=== PATIENT | female | born 1955 | race Caucasian/White ===

== ENCOUNTER 2020-12-26 17:37 | Emergency (ER) | payer OTHER ==
[~2020-12-26] VITALS: Ht 170.2 cm; Wt 82.7 kg
--- NOTE | 2020-12-26 17:40 | NUR ---
pt BIB [facility] from home for ALOC, unk onset per report, pt family on scene were very poor historians and patient was not talking IV started [employer] x2 and pt given fluids. per report, [facility] having difficulty getting B/P reading upon admit, pt making some noise. HAYES. no facial droop noted.
--- NOTE | 2020-12-26 17:47 | NUR ---
lab at bedside to draw
--- NOTE | 2020-12-26 17:50 | NUR ---
Dr. Steen has been to bedside for eval EKG at bedside pt reeating "hurt" but not answering questions
--- NOTE | 2020-12-26 17:59 | NUR ---
pt daughter at bedside. per daughter, she was at work and recieved a call from family at home with pt who stated that she "was not breathing right" and that they gave her her inhaler and called [phone]
[2020-12-26 18:00] LABS: BASOPHILS % (AUTO) 1 % (0-1); EOSINOPHILS % (AUTO) 0 % (1-7); LYMPHOCYTES % (AUTO) 39 % (22-44); MEAN CORPUSCULAR HEMOGLOBIN 35.4 pg (27.0-34.8); MEAN CORPUSCULAR HGB CONC 34.2 g/dL (32.4-35.8); MEAN PLATELET VOLUME 7.4 fL (7.4-10.4); MONOCYTES % (AUTO) 7 % (2-9); NEUTROPHILS % (AUTO) 53 % (42-75); PLATELET COUNT 368 x10^3/uL (130-400); RED CELL DISTRIBUTION WIDTH 18.8 % (9.6-15.2)
[2020-12-26] MEDS ORDERED: SODIUM CHLORIDE 0.9% 1,000ML IVBOLUS ONE (18:00)
--- NOTE | 2020-12-26 18:00 | NUR ---
pt moved to room 39. report to Carlos ZAMAN
[2020-12-26 18:12] LABS: ALBUMIN 3.1 g/dL (3.4-5.0); ANION GAP 8 mmol/L (5-15); CALCIUM 8.7 mg/dL (8.5-10.1); CHLORIDE 108 mmol/L (98-107); SALICYLATE LEVEL 3.7 mg/dL (2.8-20.0)
[2020-12-26 18:15] LABS: ALANINE AMINOTRANSFERASE 9 U/L (12-78); ALKALINE PHOSPHATASE 69 U/L (45-117); BILIRUBIN,TOTAL 0.4 mg/dL (0.2-1.0); CREATININE 0.63 mg/dL (0.55-1.02); TOTAL PROTEIN 7.3 g/dL (6.4-8.2); TROPONIN I < 0.015 ng/mL (0.000-0.045)
--- NOTE | 2020-12-26 18:15 | NUR ---
LATE ENTRY FOR 1814 D/T PATIENT CARE: REPORT TAKEN FROM JUNIE HAND, CARE ASSUMED BY THIS RN. PT IS SPEAKING IN COHERENT SENTENCES, WHICH IS AN IMPROVEMENT FROM MENTAL STATUS ON ARRIVAL PER JUNIE HAND. PT IS DISORIENTED. PT MOVING ALL EXTREMITIES, FOLLOWS COMMANDS. AFTER RECEIVING REPORT, PT BECAME NON-RESPONSIVE FOR APPROX 15 SECONDS, NOT RESPONSIVE TO STERNAL RUB. NO CHANGE IN VITAL SIGNS OR CARDIAC RHYTHM. EYES CROSS WHEN LIDS OPEN. AFTER APPROX 15 SECONDS, PT SPONTANEOUSLY BEGINS TO SPEAK AND MOVE EXTREMITIES. EDKS TARIQ NOTIFIED PT HAS 3/5 STRENGTH TO ALL EXTREMITIES WITH EQUAL RN WOUND BILATERALLY. NON-COMPLIANT WITH FULL NEURO ASSESSMENT, TRACI DRIFT AND DETAILED NEURO ASSESSMENT COMPONENTS. PT'S DAUGHTER IS NOW AT BEDSIDE AND STATES THAT SHE BELIEVES PT WAS LAST NORMAL AROUND 1600 ACCORDING TO PT'S AUNT (WHOM PT LIVES WITH), PT'S AUNT WENT TO STORE AND RETURNED TO FIND PT ALTERED. MD POTTER NOTIFIED. STATES CODE NEURO NOT INDICATED LAST KNOWN NORMAL IS NOT EXACT, AND PT HAS NO FOCAL NEURO DEFICITS. ALL MONITORS IN PLACE. PT'S DAUGHTER AT BEDSIDE.
[2020-12-26 18:21] LABS: FREE T4 (FREE THYROXINE) 0.86 ng/dL (0.76-1.46)
[2020-12-26] MEDS ORDERED: THIAMINE 100 MG/ML, 2ML IM ONE (18:30)
--- NOTE | 2020-12-26 18:39 | NUR ---
pt to ct
--- NOTE | 2020-12-26 18:50 | NUR ---
REPORT GIVEN TO JUNIE LEBLANC PT IN CT AT THIS TIME.
[2020-12-26 18:54] LABS: MICROSCOPIC NOT IND
[2020-12-26 19:05] LABS: AMPHETAMINE SCREEN, URINE Positive (Negative); BARBITURATE SCREEN, URINE Negative (Negative); BENZODIAZEPINE SCREEN, URINE Negative (Negative); CANNABINOID SCREEN, URINE Negative (Negative); COCAINE SCREEN, URINE Negative (Negative); METHADONE SCREEN, URINE Negative (Negative); OPIATE SCREEN, URINE Negative (Negative)
[2020-12-26 19:15] VITALS: BP 111/78
--- NOTE | 2020-12-26 19:16 | NUR ---
PT BACK FROM CT DAUGHTER AT BEDSIDE STS PT IS SHAKING, UPON ENTERING ROOM PT A/O FOR RN AND AWARE OF LOCATION AND IS ASKING TO GO HOME. PT REMAINS CONNECTED TO MONITORING VSS NADN
[2020-12-26] MEDS ORDERED: THIAMINE 100 MG/ML, 2ML ONE (19:29)
--- NOTE | 2020-12-26 19:31 | NUR ---
DR POTTER AT BEDSIDE FOR EVAL AND POC
== END 2020-12-26 20:22 ==
LOC: ED 19:04
DX: R41.82 Altered mental status, unspecified (principal); R94.31 Abnormal electrocardiogram [ECG] [EKG]; F10.120 Alcohol abuse with intoxication, uncomplicated; G31.2 Degeneration of nervous system due to alcohol; Y90.0 Blood alcohol level of less than 20 mg/100 ml
CPT/HCPCS: 36415; 70450; 71045; 80053; 80299; 80307; 80320; 80329; 81003; 84439; 84443; 84484; 85025; 93005; 96360; 96372; 99285; J3411; J7030; G0480

== ENCOUNTER 2021-01-17 19:43 | Inpatient (IN) | payer OTHER ==
[~2021-01-17] VITALS: Ht 162.6 cm; Wt 74.9 kg
[~2021-01-17 19:43] MED LIST: ALBU6.7H8 INH; ATOR10TA PO; CHLO25TA PO; DICL100G25 TP; GABA300C PO; LISI-167 PO; TIOT4MIS5 INH
--- NOTE | 2021-01-17 19:55 | NUR ---
THIS IS A 65F BROUGHT IN BY FRIEND, PT NOT INTERACTING WITH STAFF OR ANSWERING QUESTIONS HOWEVER PT LEFT FACILITY YESTERDAY EVENING AMA. PT CONNECTED TO ALL MONITORING, PIV STARTED.
[2021-01-17] MEDS ORDERED: SODIUM CHLORIDE FLUSH 10ML SYR IVF ONE (21:00)
[2021-01-17] MEDS ORDERED: SODIUM CHLORIDE 0.9% 1,000ML IVBOLUS ONE (21:00)
[2021-01-17 21:04] LABS: BASOPHILS % (AUTO) 1 % (0-1); EOSINOPHILS % (AUTO) 0 % (1-7); LYMPHOCYTES % (AUTO) 34 % (22-44); MEAN CORPUSCULAR HEMOGLOBIN 35.1 pg (27.0-34.8); MEAN CORPUSCULAR HGB CONC 34.3 g/dL (32.4-35.8); MONOCYTES % (AUTO) 7 % (2-9); NEUTROPHILS % (AUTO) 58 % (42-75); PLATELET COUNT 273 x10^3/uL (130-400); RED BLOOD COUNT 4.11 x10^6/uL (3.82-5.3); RED CELL DISTRIBUTION WIDTH 16.9 % (9.6-15.2)
--- NOTE | 2021-01-17 21:05 | NUR ---
PT REQUESTING BATHROOM, PT A/O X4 AMBULATORY AND STS SHE DOES NOT RECALL LEAVING THE HOSPITAL. URINE SENT TO LAB
[2021-01-17 21:15] LABS: ALANINE AMINOTRANSFERASE 17 U/L (12-78); ALBUMIN 3.7 g/dL (3.4-5.0); ANION GAP 7 mmol/L (5-15); CALCIUM 9.4 mg/dL (8.5-10.1); CHLORIDE 104 mmol/L (98-107); CREATININE 0.78 mg/dL (0.55-1.02)
[2021-01-17 21:16] LABS: MICROSCOPIC NOT IND
[2021-01-17 21:20] LABS: ALKALINE PHOSPHATASE 63 U/L (45-117); BILIRUBIN,TOTAL 0.5 mg/dL (0.2-1.0); TOTAL PROTEIN 8.6 g/dL (6.4-8.2); TROPONIN I < 0.015 ng/mL (0.000-0.045)
[2021-01-17 21:27] LABS: AMPHETAMINE SCREEN, URINE Positive (Negative); BARBITURATE SCREEN, URINE Negative (Negative); BENZODIAZEPINE SCREEN, URINE Negative (Negative); CANNABINOID SCREEN, URINE Negative (Negative); COCAINE SCREEN, URINE Negative (Negative); METHADONE SCREEN, URINE Negative (Negative); OPIATE SCREEN, URINE Negative (Negative)
[2021-01-17] MEDS ORDERED: ONDANSETRON 2MG/ML, 2ML IVPush ONE (22:00)
[2021-01-17] MEDS ORDERED: MORPHINE SULFATE 4 MG/ML, 1ML IVPush PRN (22:00)
--- NOTE | 2021-01-17 22:00 | NUR ---
PT RESTING ON KEN DUANEKarissa DAUGHTER AT BEDSIDE FOR SUPPORT, PT INTERACTING WITH DAUGHTER NORMALLY,
[2021-01-17] MEDS ORDERED: ONDANSETRON 2MG/ML, 2ML ONE (22:03)
[2021-01-17] MEDS ORDERED: MORPHINE SULFATE 4 MG/ML, 1ML ONE (22:04)
--- NOTE | 2021-01-17 22:08 | NUR ---
PT MEDICATED PER MAR FOR PAIN AND NAUSEA AT THIS TIME 5RIGHTS VERIFIED.
--- NOTE | 2021-01-17 22:27 | NUR ---
TASK RN: PT NOTED TO HAVE O2 SAT AT 71% ON ROOM AIR. PT PLACED ON 2L O2 VIA NASAL CANNULA. O2 SAT IMPROVED TO 96%
--- NOTE | 2021-01-17 22:46 | NUR ---
REPORT TO MAGI ZAMAN PT READY FOR TRANSFER TO FLOOR
--- NOTE | 2021-01-17 23:06 | NUR ---
Charge nurse: Pt family asking to go up with patient. Checked with Lee Ann primary nurse upstairs who stated no visitors now. Gave family number for unit.
[2021-01-17 23:15] VITALS: BP 100/72
[2021-01-17] MEDS ORDERED: hydrALAzine 20 MG/ML, 1ML IVPush PRN (23:30)
[2021-01-17] MEDS ORDERED: ONDANSETRON 2MG/ML, 2ML IVPush PRN (23:30)
[2021-01-17] MEDS ORDERED: ALBUTEROL SULFATE 2.5 MG/3 ML NPPB PRN (23:30)
[2021-01-17] MEDS ORDERED: ACETAMINOPHEN 325 MG TABLET PO PRN (23:30)
[2021-01-17] MEDS ORDERED: BISACODYL 10 MG SUPP PR PRN (23:30)
[2021-01-17] MEDS ORDERED: SODIUM CHLORIDE 0.9% 1,000 ML IV SCH (23:30)
[2021-01-18 01:06] VITALS: BP 107/70
[2021-01-18 04:43] LABS: BASOPHILS % (AUTO) 1 % (0-1); EOSINOPHILS % (AUTO) 0 % (1-7); LYMPHOCYTES % (AUTO) 34 % (22-44); MEAN CORPUSCULAR HEMOGLOBIN 35.5 pg (27.0-34.8); MEAN CORPUSCULAR HGB CONC 34.5 g/dL (32.4-35.8); MEAN PLATELET VOLUME 8.2 fL (7.4-10.4); MONOCYTES % (AUTO) 8 % (2-9); NEUTROPHILS % (AUTO) 57 % (42-75); PLATELET COUNT 261 x10^3/uL (130-400); RED BLOOD COUNT 3.84 x10^6/uL (3.82-5.3); RED CELL DISTRIBUTION WIDTH 16.5 % (9.6-15.2)
[2021-01-18 04:50] LABS: ANION GAP 5 mmol/L (5-15); CALCIUM 8.9 mg/dL (8.5-10.1); CHLORIDE 107 mmol/L (98-107); CREATININE 0.65 mg/dL (0.55-1.02)
[2021-01-18] MEDS: ASPIRIN 325 MG TABLET EC PO SCH (06:00)
[2021-01-18] MEDS: IPRATROPIUM 0.5 MG/2.5 ML INHA NPPB SCH ×5 (06:00→23:37)
[2021-01-18 07:19] VITALS: BP 86/54
[2021-01-18 07:26] VITALS: BP 91/64
[2021-01-18] MEDS ORDERED: CHLORTHALIDONE 25 MG TABLET PO SCH (09:00)
[2021-01-18] MEDS ORDERED: LISINOPRIL 20 MG TABLET PO SCH (09:00)
[2021-01-18] MEDS: D5%-0.45NACL+KCL 20MEQ 1,000 ML IV SCH (09:31)
[2021-01-18 13:23] VITALS: BP 106/73
[2021-01-18 20:24] VITALS: BP 93/61
[2021-01-18] MEDS ORDERED: ATORVASTATIN 20 MG TABLET PO SCH (21:00)
[2021-01-19 02:44] VITALS: BP 101/73
[2021-01-19 04:41] LABS: BASOPHILS % (AUTO) 1 % (0-1); EOSINOPHILS % (AUTO) 0 % (1-7); LYMPHOCYTES % (AUTO) 29 % (22-44); MEAN CORPUSCULAR HEMOGLOBIN 35.2 pg (27.0-34.8); MEAN CORPUSCULAR HGB CONC 34.5 g/dL (32.4-35.8); MEAN PLATELET VOLUME 8.2 fL (7.4-10.4); MONOCYTES % (AUTO) 7 % (2-9); NEUTROPHILS % (AUTO) 63 % (42-75); PLATELET COUNT 257 x10^3/uL (130-400); RED BLOOD COUNT 3.72 x10^6/uL (3.82-5.3)
[2021-01-19 04:55] LABS: ALANINE AMINOTRANSFERASE 15 U/L (12-78); ANION GAP 2 mmol/L (5-15); CALCIUM 8.6 mg/dL (8.5-10.1); CHLORIDE 107 mmol/L (98-107); CHOLESTEROL, TOTAL 148 mg/dL (140-239); CREATININE 0.68 mg/dL (0.55-1.02)
[2021-01-19 04:57] LABS: ALKALINE PHOSPHATASE 52 U/L (45-117); BILIRUBIN,TOTAL 0.4 mg/dL (0.2-1.0); CHOL/HDL RATIO 3.1; HDL CHOL % 32 % (28-40); HDL CHOLESTEROL (DIRECT) 47 mg/dL (40-60); LDL CHOLESTEROL,CALCULATED 81 mg/dL (54-169); LDL/HDL RATIO 1.7 (0.5-3.0); TRIGLYCERIDES 98 mg/dL (50-200); VLDL CHOLESTEROL 20 mg/dL (0-25)
[2021-01-19] MEDS: D5%-0.45NACL+KCL 20MEQ 1,000 ML IV SCH (05:00)
[2021-01-19] MEDS: IPRATROPIUM 0.5 MG/2.5 ML INHA NPPB SCH ×3 (06:00→15:45)
[2021-01-19] MEDS: ASPIRIN 325 MG TABLET EC PO SCH (06:08)
[2021-01-19 08:12] VITALS: BP 165/68
[2021-01-19 12:44] VITALS: BP 105/54
[2021-01-19] MEDS ORDERED: ASPI-963 PO (17:03)
== END 2021-01-19 18:16 | disposition home or self-care (01) | DRG 917 ==
LOC: ED 20:10 → EDIP 22:24 → 4EST 23:10
PROVIDERS: ADMIT Family Medicine; ATTEND Family Medicine
DX: T43.621A Poisoning by amphetamines, accidental (unintentional), initial encounter (principal); G92 Toxic encephalopathy; J96.01 Acute respiratory failure with hypoxia; I50.30 Unspecified diastolic (congestive) heart failure; N17.9 Acute kidney failure, unspecified; J98.11 Atelectasis; I50.32 Chronic diastolic (congestive) heart failure; F15.10 Other stimulant abuse, uncomplicated; J44.9 Chronic obstructive pulmonary disease, unspecified; E78.5 Hyperlipidemia, unspecified; I11.0 Hypertensive heart disease with heart failure; Z66 Do not resuscitate; Z96.659 Presence of unspecified artificial knee joint; N32.9 Bladder disorder, unspecified; I65.23 Occlusion and stenosis of bilateral carotid arteries; Z88.8 Allergy status to other drugs, medicaments and biological substances; Z91.030 Bee allergy status; Z88.0 Allergy status to penicillin; Z91.013 Allergy to seafood; Z86.73 Personal history of transient ischemic attack (TIA), and cerebral infarction without residual deficits; Z90.710 Acquired absence of both cervix and uterus; Z90.722 Acquired absence of ovaries, bilateral; Z79.899 Other long term (current) drug therapy; Y92.89 Other specified places as the place of occurrence of the external cause
CPT/HCPCS: 36415; 96361; 96374; 96375; 99285; J7644; 70450; 71045; 80048; 80053; 80061; 80307; 81003; 82140; 82607; 82962; 83036; 84484; 85025; 93005; 93880; 94640; G0378; J2405; J2270; J3480; J7030